=== PATIENT | male | born 1985 | race Caucasian/White ===

== ENCOUNTER 2016-02-16 10:54 | Emergency (ER) | payer BC ==
[2016-02-16 13:06] VITALS: BP 127/73
[2016-02-16] MEDS ORDERED: Sulfamethox/Trimethoprim DS 800/160* TAB PO ONE (13:27)
[2016-02-16] MEDS ORDERED: Cephalexin CAP* 500 MG PO ONE (13:27)
--- NOTE | 2016-02-16 13:41 | UC ---
Epistaxis Nasal HPI - HPI Summary HPI Summary: 30 yo male (HIV +) had recent URI symptoms Developed a pimple in left nare that he popped Now left side of nose red/swollen and more painful worsening over the past few days no f/c no FREEMAN or stiff neck - History of Current Complaint Chief Complaint: UCSkin Stated Complaint: SKIN Time Seen by Provider: 02/16/16 13:16 Hx Obtained From: Patient Onset/Duration: Gradual Onset, Lasting Days Timing: Constant Severity Initially: Mild Severity Currently: Severe Pain Intensity: 8 Pain Scale Used: 0-10 Numeric Aggravating Factor(s): Nasal Trauma - squeezed a pimple Alleviating Factor(s): Nothing - motrin initially helped - Allergies/Home Medications Allergies/Adverse Reactions: Allergies Allergy/AdvReac Type Severity Reaction Status Date / Time No Known Allergies Allergy Verified 02/16/16 13:06 Home Medications: Home Medications Dlribxfoudusw-Rokkirnnrgs-Ynob [Odefsey 200-25-25 mg] 1 tab PO DAILY 02/16/16 [ History Confirmed 02/16/16] Ibuprofen TAB* [Motrin TAB* 800 MG] 800 mg PO Q6H PRN 02/16/16 [History Confirmed 02/16/16] PMH/Surg Hx/FS Hx/Imm Hx Previously Healthy: Yes Other History Of: HIV - Surgical History Surgical History: None - Family History Known Family History: Positive: Hypertension - Social History Alcohol Use: Occasionally Substance Use Type: Marijuana Smoking Status (MU): Heavy Every Day Tobacco Smoker Type: Cigarettes Amount Used/How Often: 1 PPD Have You Smoked in the Last Year: Yes Household Exposure Type: Cigarettes - Immunization History Most Recent Influenza Vaccination: 2012 Review of Systems Constitutional: Negative Skin: Negative Eyes: Negative ENT: Negative Respiratory: Negative Cardiovascular: Negative Gastrointestinal: Negative Genitourinary: Negative Motor: Negative Neurovascular: Negative Musculoskeletal: Negative Neurological: Negative Psychological: Negative All Other Systems Reviewed And Are Negative: Yes Physical Exam Triage Information Reviewed: Yes Appearance: Well-Appearing, No Pain Distress, Well-Nourished Vital Signs: Initial Vital Signs Temp 98.6 F 02/16/16 13:03 Pulse 92 02/16/16 13:03 Resp 14 02/16/16 13:03 BP 127/73 02/16/16 13:03 Pulse Ox 99 02/16/16 13:03 Vital Signs Reviewed: Yes Eyes: Positive: Conjunctiva Clear ENT: Positive: Hearing grossly normal, Pharynx normal, TMs normal, Other: - left lateral nose red and indurated left nare/some scabbing inside. Negative: Normal ENT inspection, Pharyngeal erythema, Nasal congestion, Nasal drainage Dental: Negative: Dental Fracture @, Abscess @, Cervical Lymphadenopathy, Bleeding Neck: Positive: Supple, Nontender, No Lymphadenopathy Respiratory: Positive: Lungs clear, Normal breath sounds, No respiratory distress Cardiovascular: Positive: RRR, No Murmur Abdomen Description: Positive: No Organomegaly. Negative: CVA Tenderness (R), CVA Tenderness (L), Hepatomegaly, McBurney's Point Tenderness, Pulsatile Mass, Splenomegaly Musculoskeletal Exam: Normal Musculoskeletal: Positive: ROM Intact, No Edema Neurological: Positive: Alert Psychological Exam: Normal Skin Exam: Normal Epistaxis Nasal Course/Dx - Differential Dx/Diagnosis Provider Diagnoses: nasal cellulitis ?abscess Discharge - Discharge Plan Condition: Stable Disposition: HOME Prescriptions: Cephalexin CAP* [Keflex CAP*] 500 mg PO QID #28 cap HYDROcodone/ACETAMIN 5-325 MG* [[place] 5-325 TAB*] 1 tab PO Q4H PRN #15 tab MDD 6 PRN Reason: Pain Sulfamethox/Trimethoprim DS* [Bactrim DS 800/160 TAB*] 1 tab PO BID #14 tab Patient Education Materials: Cellulitis (ED) Referrals: Jose M Woodward MD [Medical Doctor] - Jovan Alonso MD [Medical Doctor] - Additional Instructions: frequent warm soapy compresses DON'T SQUEEZE TO ER FOR: increased pain fever vomiting severe headache If you don't note dramatic improvement in a couple of days I suggest you see an ENT You can call the [place] office number of the MDs listed to see if they have [place] appts this week continue ibuprofen
== END 2016-02-16 13:47 | disposition home or self-care (01) ==
LOC: UCCORT 10:54
DX: J34.0 Abscess, furuncle and carbuncle of nose (principal); F17.210 Nicotine dependence, cigarettes, uncomplicated; B20 Human immunodeficiency virus [HIV] disease
CPT/HCPCS: 99212; A9270-GY; G0463

== ENCOUNTER 2016-04-03 13:15 | Emergency (ER) | payer BC ==
[2016-04-03 15:59] VITALS: BP 118/87
--- NOTE | 2016-04-03 16:36 | UC ---
Shoulder Pain HPI - HPI Summary HPI Summary: Pt presents c/o left shoulder pain s/p falling down porch steps yesterday after slipping on ice. denies hitting head or LOC. reports generalized pain in left mid scapula, and AC joint. - History of Current Complaint Chief Complaint: UCGeneralIllness Stated Complaint: LEFT SHOULDER PAIN Time Seen by Provider: 04/03/16 16:26 Hx Obtained From: Patient Onset/Duration: Sudden Onset, Lasting Hours Timing: Constant Severity Initially: Moderate Severity Currently: Mild Location Of Pain: Is Discrete @ - left shoulder Character: Sharp, Dull, Aching Aggravating Factor(s): Movement Alleviating Factor(s): Rest Associated Signs And Symptoms: Positive: Negative Related History: Dominant Hand Right - Risk Factors Non-Orthopedic Risk Factor: Negative DVT Risk Factors: Smoking - Allergies/Home Medications Allergies/Adverse Reactions: Allergies Allergy/AdvReac Type Severity Reaction Status Date / Time No Known Allergies Allergy Verified 04/03/16 15:59 Home Medications: Home Medications Hejxdra-Qsfrlctnnknxp-Leytpwsk [Excedrin Extra Strength 250-250-65 mg] 2 tab PO ONCE 04/03/16 [History Confirmed 04/03/16] PMH/Surg Hx/FS Hx/Imm Hx Previously Healthy: Yes Other History Of: HIV - Surgical History Surgical History: None - Family History Known Family History: Positive: Hypertension - Social History Alcohol Use: Rare Substance Use Type: None Smoking Status (MU): Light Every Day Tobacco Smoker Type: Cigarettes Amount Used/How Often: 6 cigs daily Have You Smoked in the Last Year: Yes Household Exposure Type: Cigarettes - Immunization History Most Recent Influenza Vaccination: [id number] Review of Systems Constitutional: Negative Skin: Negative Eyes: Negative ENT: Negative Respiratory: Negative Cardiovascular: Negative Gastrointestinal: Negative Genitourinary: Negative Motor: Decreased ROM - secondary to pain Musculoskeletal: Arthralgia, Decreased ROM - secondary to pain, Myalgia Neurological: Negative Psychological: Negative All Other Systems Reviewed And Are Negative: Yes Physical Exam Triage Information Reviewed: Yes Appearance: Well-Appearing Vital Signs: Initial Vital Signs Temp 97.8 F 04/03/16 15:54 Pulse 99 04/03/16 15:54 Resp 17 04/03/16 15:54 BP 118/87 04/03/16 15:54 Pulse Ox 100 04/03/16 15:54 Vital Signs Reviewed: Yes ENT Exam: Normal Neck exam: Other - tenerness with movement left side of neck Neck: Positive: No Lymphadenopathy Respiratory Exam: Normal Cardiovascular Exam: Normal Musculoskeletal Exam: Other Musculoskeletal: Positive: Other: - c/o pain with ROM left shoulder and left mid scapula and left side of neck. Neurological Exam: Normal Psychological Exam: Normal Skin Exam: Normal Shoulder Course/Dx - Course Course Of Treatment: xray impression: IMPRESSION: NO ACUTE OSSEOUS INJURY. IF SYMPTOMS PERSIST, RECOMMEND REPEAT IMAGING. - Differential Dx/Diagnosis Differential Diagnosis/HQI/PQRI: Contusion, Strain Provider Diagnoses: contusion left shoulder. left scapula contusion. left shoulder strain Discharge - Discharge Plan Condition: Stable Disposition: HOME Prescriptions: Cyclobenzaprine TAB* [Flexeril TAB*] 10 mg PO TID PRN #12 tab PRN Reason: Pain Patient Education Materials: Shoulder Pain (ED) Referrals: No Primary Care Phys,NOPCP [Primary Care Provider] -
--- NOTE | 2016-04-03 16:51 | RAD ---
HISTORY: Subacute trauma, left shoulder pain COMPARISONS: None VIEWS: 3, Frontal internal rotation, external rotation, and outlet views of the left shoulder FINDINGS: BONE DENSITY: Normal. BONES: There is no displaced fracture. JOINTS: There is no arthropathy. ALIGNMENT: There is no dislocation. SOFT TISSUES: Unremarkable. OTHER FINDINGS: None. IMPRESSION: NO ACUTE OSSEOUS INJURY. IF SYMPTOMS PERSIST, RECOMMEND REPEAT IMAGING.
== END 2016-04-03 17:06 | disposition home or self-care (01) ==
LOC: UCCORT 13:15
DX: S40.012A Contusion of left shoulder, initial encounter (principal); S46.912A Strain of unspecified muscle, fascia and tendon at shoulder and upper arm level, left arm, initial encounter; W00.1XXA Fall from stairs and steps due to ice and snow, initial encounter; Y93.9 Activity, unspecified; Y92.9 Unspecified place or not applicable; R03.0 Elevated blood-pressure reading, without diagnosis of hypertension; F17.210 Nicotine dependence, cigarettes, uncomplicated
CPT/HCPCS: 99212; G0463

== ENCOUNTER 2016-05-08 10:18 | Emergency (ER) | payer BC ==
--- NOTE | 2016-05-08 12:01 | UC ---
UC General HPI - HPI Summary HPI Summary: The patient comes in today for: 1. Lower rectal fullness and constant urge to have a bowel movement (x 2 weeks) : Onset: one month ago he started having problems with his bowel movement. Palliative/provocative: Nothing makes his symptoms better or worse. Quality: REctal fullness Region: Lower GI Severity: no pain. Time: Constant. Associated symptoms: Last BM: This AM (9AM), but it was like pureed food. It was brown. However, about two hours before he has passage of what looked whitish (tissue?) with blood. About two hours before that (about 5:30 AM) he passed gas and almost gelatinous crimson material. Previous evaluation: About two weeks ago, he went to [facility] for not having a bowel movement for about two weeks and abdominal pain. He had a CT scan and it showed only constipation (minor). Primary care provider: He is going to see someone for the first time on the 28 of May. It is the soonest he could get in. Previous treatment: two weeks ago, he started Miralax (one capful) once a day in glass of orange juice. He took it for 4 days. Then on day 5, he did not take it, but on day 6, he took another dose of Miralax. On day 7, he had brown mushy stools, 7 stools/day for three days. Then he got constipated again. Intestinal disease: None other than listed above HIV: CD4 count done 3 months ago and it was "good" at 640. Viral load was undetectable for at least the last 4-5 years. Anal dysplasia clinic ([facility]): August of 2015: He had this done because HIV ([place]) specialist did anal Pap which revealed abnormal cells. He was referred to another specialist in [facility]. Nothing was found. No colonoscopy. * - History of Current Complaint Chief Complaint: UCGI Stated Complaint: CONSTIPATION Time Seen by Provider: 05/08/16 11:22 Hx Obtained From: Patient - Allergy/Home Medications Allergies/Adverse Reactions: Allergies Allergy/AdvReac Type Severity Reaction Status Date / Time No Known Allergies Allergy Verified 05/08/16 10:46 Home Medications: Home Medications Gabapentin CAP(*) [Neurontin 400 mg CAP(*)] 800 mg PO TID 05/08/16 [History Confirmed 05/08/16] PMH/Surg Hx/FS Hx/Imm Hx Previously Healthy: No - HIV (undetectable, CD4: 640), peripheral neuropathy Endocrine History Of: Denies: Diabetes, Thyroid Disease, Hyperthyroidism, Hypothyroidism, Dyslipidemia Cardiovascular History Of: Denies: Cardiac Disorders, Hypertension, Pacemaker/ICD, Myocardial Infarction , Congestive Heart Failure, Atrial Fibrillation, Deep Vein Thrombosis, Bleeding Disorders Respiratory History Of: Denies: COPD, Asthma, Bronchitis, Pneumonia, Pulmonary Embolism GI/ History Of: Denies: Gastroesophageal Reflux, Ulcer, Gastrointestinal Bleed, Gall Bladder Disease, Kidney Stones, Diverticulitis, Renal Disease, Urosepsis Neurological History Of: Denies: TIA, CVA, Dementia, Seizures, Migraine Psychological History Of: Reports: Anxiety, Depression, Bipolar Disorder Denies: Schizophrenia, Post Traumatic Stress Disorder Cancer History Of: Denies: Lung Cancer - On on medications., Colorectal Cancer, Breast Cancer, Prostate Cancer, Cervical Cancer Other History Of: HIV Negative For: Hepatitis B, Hepatitis C, Anticoagulant Therapy - Surgical History Surgical History: None - Family History Known Family History: Positive: Hypertension, Diabetes - Social History Occupation: Unemployed Alcohol Use: Rare Substance Use Type: None Smoking Status (MU): Light Every Day Tobacco Smoker Type: Cigarettes Amount Used/How Often: 8 cigs daily Have You Smoked in the Last Year: Yes Household Exposure Type: Cigarettes - Immunization History Most Recent Influenza Vaccination: [id number] Most Recent Tetanus Shot: UTD Review of Systems Constitutional: Negative Skin: Negative Eyes: Negative ENT: Negative Respiratory: Negative Cardiovascular: Negative Gastrointestinal: Negative, Other - See HPI. Motor: Negative Musculoskeletal: Negative All Other Systems Reviewed And Are Negative: Yes Physical Exam Triage Information Reviewed: Yes Appearance: Well-Appearing, No Pain Distress, Well-Nourished Vital Signs: Initial Vital Signs Temp 98.1 F 05/08/16 10:48 Pulse 94 05/08/16 10:48 Resp 18 05/08/16 10:48 BP 133/83 05/08/16 10:48 Pulse Ox 100 05/08/16 10:48 Vital Signs Reviewed: Yes Eyes: Positive: Conjunctiva Clear ENT: Positive: Hearing grossly normal, Other: - NO hairy leukoplakia.. Negative : Pharyngeal erythema, Nasal congestion, Nasal drainage, TM bulging, TM dull, TM red, Tonsillar swelling, Tonsillar exudate Dental: Negative: Gross Decay/Caries @, Dental Fracture @ Neck: Positive: Supple, Nontender, No Lymphadenopathy. Negative: Nuchal Rigidity Respiratory: Positive: Chest non-tender, Lungs clear, No respiratory distress, No accessory muscle use. Negative: Crackles, Wheezing Cardiovascular: Positive: RRR, No Murmur Abdomen Description: Positive: Nontender, No Organomegaly, Soft. Negative: Distended, Guarding Musculoskeletal: Positive: Strength Intact, ROM Intact Neurological: Positive: Alert, Muscle Tone Normal Psychological: Positive: Age Appropriate Behavior, Consolable Skin: Positive: Other UC Physical Exam Vital Signs On Initial Exam: Initial Vitals Temp Pulse Resp BP Pulse Ox 98.1 F 94 18 133/83 100 05/08/16 10:48 05/08/16 10:48 05/08/16 10:48 05/08/16 10:48 05/08/16 10:48 - Rectal Exam Rectal Exam: Other - Rectal exam: Positive, soft-nontender hemorrhoid. Sentinal tags. 7 o'clock beefy red area, tender to light touch. Difficult to see if there were ulcers on an erythematous base. No abscess. Rectal tone was slightly weak. Digital exam revealed no stool, and no pain, but he stated that he felt during the digital exam that there is a strong urge to defecate. Diagnostics - Laboratory Diagnostic Studies Completed/Ordered: Occult blood: herpes viral culture. Course/Dx - Differential Dx - Multi-Symptom Provider Diagnoses: proctitis. Renetta-anal dermatitis (r/o herpes) Discharge - Discharge Plan Condition: Stable Disposition: HOME Patient Education Materials: Proctitis (ED) Additional Instructions: Please contact the [facility] for an appointment with the Gastroenterology department regarding evaluation and treatment of your symptoms. The phone number is: [phone].
[2016-05-08 12:44] VITALS: BP 125/81
[2016-05-11 22:41] LABS: HS/VZ Source PERI-ANAL; Varicella Zoster Result Negative (Negative); Varicella Zoster Source PERI-ANAL
== END 2016-05-08 12:57 | disposition home or self-care (01) ==
LOC: UCCORT 10:18
DX: L29.0 Pruritus ani (principal); K62.89 Other specified diseases of anus and rectum; K59.00 Constipation, unspecified; Z21 Asymptomatic human immunodeficiency virus [HIV] infection status; G62.9 Polyneuropathy, unspecified; F31.9 Bipolar disorder, unspecified; F41.9 Anxiety disorder, unspecified; F17.210 Nicotine dependence, cigarettes, uncomplicated
CPT/HCPCS: 82270; 87529; 87798; 99212; G0463

== ENCOUNTER 2016-05-12 10:36 | Emergency (ER) | payer BC ==
--- NOTE | 2016-05-12 11:50 | UC ---
UC General HPI - HPI Summary HPI Summary: The patient comes in today for: 1. Rectal bleeding/rectal pain: Onset: 5 weeks. Palliative/provocative: Nothing makes his symptoms better or worse. Quality: Burning, and sharp, cutting pain. Region: Rectal. Severity: flareups-11/23. Rectal elimination: 10/24. 08/23 with walking around. Time: Constant. Associated symptoms: Event: He was seen about 4 days ago for rectal pain. He came in with a complaint of constipation, but he has been doing better recently with soft stools. His last bowel movement was this morning. He has continued to have "viscous, bloody type of discharge." He had a viral culture taken and it was negative for HSV and HZV. He was not testing for any rectal STD. He is not complaining of a sore throat. Fevers: None. * - History of Current Complaint Chief Complaint: UCGU Stated Complaint: PERSONAL Time Seen by Provider: 05/12/16 11:41 Hx Obtained From: Patient - Allergy/Home Medications Allergies/Adverse Reactions: Allergies Allergy/AdvReac Type Severity Reaction Status Date / Time No Known Allergies Allergy Verified 05/12/16 11:27 PMH/Surg Hx/FS Hx/Imm Hx Endocrine History Of: Denies: Diabetes, Thyroid Disease, Hyperthyroidism, Hypothyroidism, Dyslipidemia Cardiovascular History Of: Denies: Cardiac Disorders, Hypertension, Pacemaker/ICD, Myocardial Infarction , Congestive Heart Failure, Atrial Fibrillation, Deep Vein Thrombosis, Bleeding Disorders Respiratory History Of: Denies: COPD, Asthma, Bronchitis, Pneumonia, Pulmonary Embolism GI/ History Of: Denies: Gastroesophageal Reflux, Ulcer, Gastrointestinal Bleed, Gall Bladder Disease, Kidney Stones, Diverticulitis, Renal Disease, Urosepsis Neurological History Of: Denies: TIA, CVA, Dementia, Seizures, Migraine Psychological History Of: Reports: Anxiety, Depression, Bipolar Disorder Denies: Schizophrenia, Post Traumatic Stress Disorder Cancer History Of: Denies: Lung Cancer - On on medications., Colorectal Cancer, Breast Cancer, Prostate Cancer, Cervical Cancer Other History Of: HIV Negative For: Hepatitis B, Hepatitis C, Anticoagulant Therapy - Surgical History Surgical History: None - Family History Known Family History: Positive: Hypertension, Diabetes - Social History Alcohol Use: Rare Substance Use Type: None Smoking Status (MU): Light Every Day Tobacco Smoker Type: Cigarettes Amount Used/How Often: 8 cigs daily Have You Smoked in the Last Year: Yes Household Exposure Type: Cigarettes - Immunization History Most Recent Influenza Vaccination: [id number] Most Recent Tetanus Shot: UTD Review of Systems Constitutional: Negative Skin: Negative Eyes: Negative ENT: Negative Respiratory: Negative Cardiovascular: Negative Gastrointestinal: Negative Genitourinary: Negative All Other Systems Reviewed And Are Negative: Yes Physical Exam Triage Information Reviewed: Yes Appearance: Well-Appearing, No Pain Distress, Well-Nourished Vital Signs: Initial Vital Signs Temp 98.5 F 05/12/16 11:27 Pulse 112 05/12/16 11:27 Resp 18 05/12/16 11:27 BP 115/77 05/12/16 11:27 Pulse Ox 100 05/12/16 11:27 Vital Signs Reviewed: Yes Eyes: Positive: Conjunctiva Clear. Negative: Discharge ENT: Positive: Hearing grossly normal. Negative: Pharyngeal erythema, Nasal congestion, Nasal drainage, TM bulging, TM dull, TM red, Tonsillar swelling, Tonsillar exudate Dental: Negative: Gross Decay/Caries @, Dental Fracture @ Neck: Positive: Supple, Nontender, No Lymphadenopathy. Negative: Nuchal Rigidity Respiratory: Positive: Lungs clear, No respiratory distress, No accessory muscle use. Negative: Crackles, Wheezing Cardiovascular: Positive: RRR, No Murmur Abdomen Description: Positive: Nontender, No Organomegaly, Soft. Negative: Distended, Guarding, Peritoneal Signs Musculoskeletal: Positive: Strength Intact, ROM Intact Neurological: Positive: Alert, Muscle Tone Normal Psychological: Positive: Age Appropriate Behavior, Consolable Skin: Positive: Other - Renetta-rectal: There is mild redness and tenderness to palpation. There is no discharge. Slight ulceration. Diagnostics - Laboratory Diagnostic Studies Completed/Ordered: Previous testing: Renetta-rectal test-- negative for HSV and HZV. Course/Dx - Course Course Of Treatment: GC/Chlam of the rectum and pharynx done. [facility] given. - Differential Dx - Multi-Symptom Provider Diagnoses: Proctitis Discharge - Discharge Plan Condition: Stable Disposition: HOME Patient Education Materials: Proctitis (ED) Referrals: Linda Mcallister MD [Primary Care Provider] - 3 Days (Please see your primary care provider or us after several days to see how well you are doing. If you get worse, please be seen sooner in the ER. )
[2016-05-12] MEDS ORDERED: HYDROcodone/ACETAMIN 5-325 MG* 1 TAB PO ONE (11:57)
[2016-05-12 12:38] VITALS: BP 115/77
== END 2016-05-12 13:03 | disposition home or self-care (01) ==
LOC: UCCORT 10:36
DX: K62.89 Other specified diseases of anus and rectum (principal); F17.210 Nicotine dependence, cigarettes, uncomplicated
CPT/HCPCS: 87491; 87591; 99212; G0463

== ENCOUNTER 2016-05-15 11:09 | Emergency (ER) | payer SELFPAY ==
[2016-05-15] MEDS ORDERED: cefTRIAXone VIAL(*) 250 MG VIAL IM ONE (12:38)
[2016-05-15] MEDS ORDERED: Azithromycin TAB* 250 MG PO ONE (12:38)
[2016-05-15 12:45] VITALS: BP 113/76
[2016-05-15] MEDS ORDERED: Lidocaine 1% MPF* 2 ML VIAL ONE (12:51)
--- NOTE | 2016-05-15 13:17 | UC ---
Complaint Male HPI - HPI Summary HPI Summary: 30 male presents for treatment of his positive culture he recently received the results for. Patient was seen here on 05/08/16 and 05/12/16 where he had cultures obtained for his symptoms. His rectal culture came back positive for chlamydia. Patient is also HIV positive. Patient was offered outpatient treatment versus returning and being treated and stated he wanted to be treated here, which is the reason he is here today. There are multiple notes about this in his records. - History of Current Complaint Chief Complaint: UCSTDScreening Stated Complaint: PERSONAL Time Seen by Provider: 05/15/16 13:07 Hx Obtained From: Patient Onset/Duration: Sudden Onset Timing: Constant Severity Initially: Moderate - Allergies/Home Medications Allergies/Adverse Reactions: Allergies Allergy/AdvReac Type Severity Reaction Status Date / Time No Known Allergies Allergy Verified 05/15/16 12:54 PMH/Surg Hx/FS Hx/Imm Hx Endocrine History Of: Denies: Diabetes, Thyroid Disease, Hyperthyroidism, Hypothyroidism, Dyslipidemia Cardiovascular History Of: Denies: Cardiac Disorders, Hypertension, Pacemaker/ICD, Myocardial Infarction , Congestive Heart Failure, Atrial Fibrillation, Deep Vein Thrombosis, Bleeding Disorders Respiratory History Of: Denies: COPD, Asthma, Bronchitis, Pneumonia, Pulmonary Embolism GI/ History Of: Denies: Gastroesophageal Reflux, Ulcer, Gastrointestinal Bleed, Gall Bladder Disease, Kidney Stones, Diverticulitis, Renal Disease, Urosepsis Neurological History Of: Denies: TIA, CVA, Dementia, Seizures, Migraine Psychological History Of: Reports: Anxiety, Depression, Bipolar Disorder Denies: Schizophrenia, Post Traumatic Stress Disorder Cancer History Of: Denies: Lung Cancer - On on medications., Colorectal Cancer, Breast Cancer, Prostate Cancer, Cervical Cancer Other History Of: HIV Negative For: Hepatitis B, Hepatitis C, Anticoagulant Therapy - Surgical History Surgical History: None - Family History Known Family History: Positive: Hypertension, Diabetes - Social History Alcohol Use: Rare Substance Use Type: None Smoking Status (MU): Light Every Day Tobacco Smoker Type: Cigarettes Amount Used/How Often: 8 cigs daily Have You Smoked in the Last Year: Yes Household Exposure Type: Cigarettes - Immunization History Most Recent Influenza Vaccination: [id number] Most Recent Tetanus Shot: UTD Review of Systems Constitutional: Negative Skin: Negative Eyes: Negative ENT: Negative Respiratory: Negative Cardiovascular: Negative Gastrointestinal: Other - rectal pain/bleeding Genitourinary: Negative Motor: Negative Neurovascular: Negative Musculoskeletal: Negative Neurological: Negative Psychological: Negative All Other Systems Reviewed And Are Negative: Yes Physical Exam Triage Information Reviewed: Yes Appearance: Well-Appearing, No Pain Distress, Well-Nourished Vital Signs: Initial Vital Signs Temp 98.3 F 05/15/16 12:40 Pulse 112 05/15/16 12:40 Resp 16 05/15/16 12:40 BP 113/76 05/15/16 12:40 Pulse Ox 99 05/15/16 12:40 tachycardia noted Vital Signs Reviewed: Yes Eyes: Positive: Conjunctiva Clear ENT: Positive: Normal ENT inspection, Hearing grossly normal, Pharynx normal Neck: Positive: Supple, Nontender Respiratory: Positive: Chest non-tender, Lungs clear, Normal breath sounds, No respiratory distress, No accessory muscle use Cardiovascular: Positive: RRR, No Murmur, Pulses Normal Abdomen Description: Positive: Nontender, No Organomegaly, Soft Bowel Sounds: Positive: Present Musculoskeletal Exam: Normal Neurological Exam: Normal Psychological Exam: Normal Skin Exam: Normal Complaint Male Course/Dx - Course Course Of Treatment: patient recieved a rocephin and azithromycin without complication. is not complaining of anything at this time. aware that he should refrain from engaging in sexual intercourse for fear of spreading infection. - Differential Dx/Diagnosis Differential Diagnosis/HQI/PQRI: Other Provider Diagnoses: treatment of positive culture, chlamydia Discharge - Discharge Plan Condition: Stable Disposition: HOME Patient Education Materials: Chlamydia (ED) Referrals: Linda Mcallister MD [Primary Care Provider] - Additional Instructions: If your symptoms do not improve please return. Follow up with primary care provider. Do not engage in sexual activity until you are cleared by pcp to avoid spreading of infection.
== END 2016-05-15 13:33 | disposition home or self-care (01) ==
LOC: UCCORT 11:09
DX: A56.3 Chlamydial infection of anus and rectum (principal); B20 Human immunodeficiency virus [HIV] disease; F17.210 Nicotine dependence, cigarettes, uncomplicated
CPT/HCPCS: 96372; 99212; A9270-GY; G0463; J0696

== ENCOUNTER 2016-07-30 18:33 | Emergency (ER) | payer OTHER ==
[2016-07-30 18:45] VITALS: BP 136/91
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
[2016-07-30] MEDS ORDERED: Azithromycin TAB* 250 MG PO ONE (20:15)
[2016-07-30] MEDS ORDERED: cefTRIAXone VIAL(*) 250 MG VIAL IM ONE (20:15)
[2016-07-30] MEDS ORDERED: Lidocaine 1% MPF* 2 ML VIAL INJ ONE (20:20)
== END 2016-07-30 21:02 | disposition home or self-care (01) ==
LOC: UCCORT 18:33
DX: K62.89 Other specified diseases of anus and rectum (principal); F17.210 Nicotine dependence, cigarettes, uncomplicated; K64.9 Unspecified hemorrhoids
CPT/HCPCS: 87491; 87591; 96372; 99212; A9270-GY; G0463; J0696

== ENCOUNTER 2017-02-26 12:07 | Emergency (ER) | payer OTHER ==
[2017-02-26 13:08] VITALS: BP 115/75
[2017-02-26] MEDS ORDERED: Ibuprofen TAB* 400 MG PO ONE (13:25)
[2017-02-26] MEDS ORDERED: Acetaminophen TAB* 325 MG PO ONE (13:25)
--- NOTE | 2017-02-26 13:30 | UC ---
UC General HPI - HPI Summary HPI Summary: Patient is HIV positive, has not taken his medication in 2 months, presents today with pain around the jaw, more on the left than the right. having difficulty chewing due to pain, denies fever but just doesnt feel well. - History of Current Complaint Chief Complaint: UCHeadaradha Stated Complaint: ORAL COMPLAINT,HEADACHE Time Seen by Provider: 02/26/17 13:06 Hx Obtained From: Patient Onset/Duration: Sudden Onset, Lasting Days Timing: Constant Onset Severity: Moderate Current Severity: Moderate Associated Signs & Symptoms: Positive: Headache - Allergy/Home Medications Allergies/Adverse Reactions: Allergies Allergy/AdvReac Type Severity Reaction Status Date / Time No Known Allergies Allergy Verified 02/26/17 13:08 PMH/Surg Hx/FS Hx/Imm Hx Previously Healthy: Yes Other History Of: HIV Negative For: Hepatitis B, Hepatitis C, Anticoagulant Therapy - Surgical History Surgical History: None - Family History Known Family History: Positive: Hypertension, Diabetes - Social History Alcohol Use: None Substance Use Type: None Smoking Status (MU): Light Every Day Tobacco Smoker Type: Cigarettes Amount Used/How Often: 8 cigs daily Have You Smoked in the Last Year: Yes Household Exposure Type: Cigarettes - Immunization History Most Recent Influenza Vaccination: 0845-1003 Most Recent Tetanus Shot: UTD Review of Systems Constitutional: Fatigue Skin: Negative Eyes: Negative ENT: Ear Ache Respiratory: Negative Cardiovascular: Negative Gastrointestinal: Negative Genitourinary: Negative Motor: Negative Neurovascular: Negative Musculoskeletal: Negative Neurological: Headache Psychological: Negative Is Patient Immunocompromised?: No All Other Systems Reviewed And Are Negative: Yes Physical Exam Triage Information Reviewed: Yes Appearance: Well-Nourished, Ill-Appearing, Pain Distress Vital Signs: Initial Vital Signs Temp 98.5 F 02/26/17 13:00 Pulse 94 02/26/17 13:00 Resp 18 02/26/17 13:00 BP 115/75 02/26/17 13:00 Vital Signs Reviewed: Yes Eye Exam: Normal ENT: Positive: Pharyngeal erythema, Dental tenderness, Sinus tenderness Dental: Positive: Cervical Lymphadenopathy, Other: - no acute dental issue noted , gums are pink, Neck exam: Normal Neck: Positive: Supple, Tenderness @ - around the neck and scalp,, Enlarged Nodes @ - occipital, bilateral cervical and behind the left ear and mandible Respiratory Exam: Normal Respiratory: Positive: Chest non-tender, Lungs clear, Normal breath sounds Cardiovascular Exam: Normal Cardiovascular: Positive: RRR, No Murmur, Pulses Normal Abdominal Exam: Normal Abdomen Description: Positive: Nontender, No Organomegaly, Soft Bowel Sounds: Positive: Present Musculoskeletal Exam: Normal Musculoskeletal: Positive: Strength Intact, ROM Intact, No Edema Neurological Exam: Normal Neurological: Positive: Alert, Muscle Tone Normal Psychological Exam: Normal Skin Exam: Normal Course/Dx - Course Course Of Treatment: hx obtained, exam performed ,meds reviewed, rapid strep and Flu obtained. - Differential Dx - Multi-Symptom Provider Diagnoses: lymphadenopathy. fatique. HIV positive Discharge - Discharge Plan Condition: Stable Disposition: HOME Prescriptions: Acetaminop/Codeine 30 MG TAB* [Tylenol/Codeine 30 MG TAB*] 1 tab PO Q8H PRN #8 tab MDD 3 tabs PRN Reason: Pain Cephalexin CAP* [Keflex CAP*] 500 mg PO TID #21 cap Patient Education Materials: Lymphadenopathy (ED) Referrals: No Primary Care Phys,NOPCP [Primary Care Provider] - Additional Instructions: 1. take the medication as prescribed. 2. Use the pain meds as needed. 3. FOllow up with the viral specialist if your appointment is not soon and you are not improving please report to ER for further evaluation. 4. your flu and strep were negative
== END 2017-02-26 13:56 | disposition home or self-care (01) ==
LOC: UCCORT 12:07
DX: R59.1 Generalized enlarged lymph nodes (principal); R53.83 Other fatigue; R51 Headache; F17.210 Nicotine dependence, cigarettes, uncomplicated; Z21 Asymptomatic human immunodeficiency virus [HIV] infection status
CPT/HCPCS: 87502; 87651; 99212; A9270-GY; G0463

== ENCOUNTER 2017-02-28 17:12 | Emergency (ER) | payer OTHER ==
--- OUTSIDE RECORDS SUMMARY | 2017-02-28 17:27 | XMS REPORT ---
:1985 External Reference #:[id number] Author Organization [facility] Address [address] [place] [address] Phone [phone] Care Team Providers Name Role Phone Michelle Naranjo M.D. Care Team Information Compliance Attorney Unavailable Payers Type Date Identification Numbers Payment Provider Subscriber Commercial Policy Number: [id number] [facility] Dmitry Puckett PayID: [id number] [address] [place] [address] Problems Date Description Provider Status Onset: 02/28/2017 Dental caries Michelle Naranjo M.D. Active Onset: 02/28/2017 Acute lymphadenitis Michelle Naranjo M.D. Active Onset: 02/28/2017 Human immunodeficiency virus Michelle Naranjo M.D. Active infection Social History Type Date Description Comments Marital Status Single Lives With Father Father's laminee and his son (fathers'). Diet Healthy, Well Balanced Occupation [employer] Independent with all ADL's Drive Patient drives Cigarette Use Heavy tobacco smoker (more than 10 cigarettes/day) ETOH Use Denies alcohol use Smoking Patient is a current smoker, smokes every day Recreational Drug Use Denies Drug Use Daily Caffeine Current Caffeine User Currently Active Patient is currently not last activity was about 5 sexually active months ago. Condom Use Always STD's HIV/AIDS Allergies, Adverse Reactions, Alerts Date Description Reaction Status Severity Comments 02/28/2017 NKDA active Medications Medication Date Status Form Strength Qnty SIG Indications Ordering Provider Kirby Active Tablets 200-25-25mg 30tabs Take one B20 Michelle 018 tab Po Marcella daily M.D. with meals. Gabapentin Active Tablets 800mg Stackman, 000 MD Eda Ropinirole Active Tablets 0.25mg Stackman, HCL 000 MD Eda Cephalexin Active Capsules 500mg TK 1 C Unknown 000 PO tid Odefsey Hx Tablets 200-25-25mg Unknown 000 - 018 Vital Signs Date Vital Result Comment 02/28/2017 BP Systolic Sitting Right Arm 117 mmHg BP Diastolic Sitting Right Arm 77 mmHg Body Temperature 97.5 F Heart Rate 96 /min Height 67 inches 5'7" Weight 168.00 lb BMI (Body Mass Index) 26.3 kg/m2 BSA (Body Surface Area) 1.88 m2 Breese body weight in kilograms 67 Results Description No Information Procedures Description No Information Encounters Type Date Location Provider CPT E/M Dx Office Visit 02/28/2017 2:45p [facility] Michelle Naranjo, [address] B20 Infectious Disease Mk L04.0 K02.9 Plan of Care Future Appointment(s):03/30/2017 1:15 pm - Michelle Naranjo M.D. at [facility] Hklbedf3002/28/2017 - Michelle Naranjo M.D.B20 Human immunodeficiency virus [HIV] diseaseNew Medication:Odefsey 200-25-25 mgNew Labs: CBS W/Automated DiffCD4/CD8 Ratio ProfileCD4 Jefferson T-Cell CountComprehensive Metabolic PanelCytomegalovirus (CMV) AB, IggChlamydia Trachomatis, NaaDrug Profile,Blood (7 Drugs)G-6-PD,QuantitativeGold,Serum Or Plasma (TDM)Neisseria Gonorrhoeae, NaaHIV-1 Rna By PCR,QuantHepatitis A AB, TotalHepatitis B Surface AntibodyHepatitis EvaluationLDL Cholesterol ProfileQuantiferon Non- IncubatedTreponema Antibody CascadeChlamydia Trachomatis,Ur -NaaUa RFX Micro & amp; Culture IIVitamin D,25-HydroxyHIV Screen 4TH Gen ReflexFollow up:1 [id number] Acute lymphadenitis of face, head and neckNew Labs:C-Reactive Protein ,QuantNew Xrays:CT, Neck Soft Tissue, W/ & W/O ContReferral:Carlos Ren MD , OtorhinolaryngologyFollow up:1-2 [id number] Dental caries, unspecifiedReferral :Francisco Reed MD,Follow up:f/u with dentist
== END 2017-02-28 18:07 | disposition left against medical advice (07) ==
LOC: UCCORT 17:12
DX: K08.9 Disorder of teeth and supporting structures, unspecified (principal); Z53.21 Procedure and treatment not carried out due to patient leaving prior to being seen by health care provider

== ENCOUNTER 2017-03-01 10:06 | Emergency (ER) | payer OTHER ==
[2017-03-01 11:09] VITALS: BP 119/72
--- NOTE | 2017-03-01 11:29 | UC ---
UC Dental HPI - HPI Summary HPI Summary: dental pain x 4 days left lower back dental pain , was placed on abx and pain meds few days ago has an appointment to see his dentist tomorrow requesting more pain meds - History of Current Complaint Chief Complaint: UCDentalProblem Stated Complaint: ORAL COMPLAINT Time Seen by Provider: 03/01/17 11:04 Hx Obtained From: Patient Onset/Duration: Gradual Onset, Lasting Days - 4, Still Present Severity: Severe Aggravating Factor(s): Cold, Chewing Alleviating Factor(s): Nothing Dental: 1 - tendernews - Allergies/Home Medications Allergies/Adverse Reactions: Allergies Allergy/AdvReac Type Severity Reaction Status Date / Time No Known Allergies Allergy Verified 03/01/17 11:08 PMH/Surg Hx/FS Hx/Imm Hx Previously Healthy: Yes Other History Of: HIV Negative For: Hepatitis B, Hepatitis C, Anticoagulant Therapy - Surgical History Surgical History: None - Family History Known Family History: Positive: Hypertension, Diabetes - Social History Alcohol Use: None Substance Use Type: None Smoking Status (MU): Light Every Day Tobacco Smoker Type: Cigarettes Amount Used/How Often: 8 cigs daily Have You Smoked in the Last Year: Yes Household Exposure Type: Cigarettes - Immunization History Most Recent Influenza Vaccination: 6521-1175 Most Recent Tetanus Shot: UTD Review of Systems Constitutional: Negative Skin: Negative Eyes: Negative ENT: Dental Pain Respiratory: Negative Cardiovascular: Negative Gastrointestinal: Negative Is Patient Immunocompromised?: No All Other Systems Reviewed And Are Negative: Yes Physical Exam Triage Information Reviewed: Yes Appearance: Well-Nourished, Pain Distress Vital Signs: Initial Vital Signs Temp 98.4 F 03/01/17 11:04 Pulse 102 03/01/17 11:04 Resp 16 03/01/17 11:04 BP 119/72 03/01/17 11:04 Pulse Ox 99 03/01/17 11:04 Vital Signs Reviewed: Yes Eyes: Positive: Conjunctiva Clear ENT: Positive: Normal ENT inspection, Hearing grossly normal, Pharynx normal Dental: Positive: Percussion Tenderness @ - tooth + 17. Negative: Gross Decay/ Caries @, Dental Fracture @, Abscess @ Neck: Positive: Supple, Nontender, No Lymphadenopathy Respiratory: Positive: Chest non-tender, Lungs clear, Normal breath sounds Cardiovascular: Positive: RRR, No Murmur, Pulses Normal Skin Exam: Normal Dental Complaint Course/Dx - Differential Dx/Diagnosis Provider Diagnoses: dental pain Discharge - Discharge Plan Condition: Stable Disposition: HOME Prescriptions: Acetaminop/Codeine 30 MG TAB* [Tylenol/Codeine 30 MG TAB*] 1 tab PO Q8H PRN #10 tab MDD 3 PRN Reason: Pain Patient Education Materials: Toothache (ED) Referrals: No Primary Care Phys,NOPCP [Primary Care Provider] - Additional Instructions: follow up with your dentist trevor
== END 2017-03-01 11:27 | disposition home or self-care (01) ==
LOC: UCCORT 10:06
DX: K08.89 Other specified disorders of teeth and supporting structures (principal); F17.210 Nicotine dependence, cigarettes, uncomplicated
CPT/HCPCS: 99212; G0463